=== PATIENT | male | born 1950 | race Two or more races ===

== ENCOUNTER 2019-03-22 12:56 | Inpatient (IN) | payer MEDICARE, OTHER ==
[~2019-03-22] VITALS: Ht 160 cm; Wt 80.7 kg
--- NOTE | 2019-03-22 13:00 | NUR ---
[id number], FROM SNF, C/O NAUSEA VOMITING SINCE THIS MORNING. PATIENT A/OX3, ABLE TO MOUTH NEEDS, ATTACHED TO THE SWITCH COUPLER. NEEDS ATTENDED.
[2019-03-22] MEDS ORDERED: ONDANSETRON HCL/PF 4 MG/2 ML VIAL ONE (14:28)
[2019-03-22] MEDS ORDERED: IPRA12.9 HHN (14:30)
[2019-03-22] MEDS ORDERED: ALBU2.5V38 IH (14:30)
[2019-03-22] MEDS ORDERED: ONDANSETRON HCL/PF 4 MG/2 ML VIAL IV ONE (14:30)
[2019-03-22] MEDS ORDERED: IV NS 0.9% 1,000 ML BAG IV ONE (14:30)
[2019-03-22 14:32] LABS: BASOPHILS # (AUTO) 0.1 /CMM (0.0-0.2); BASOPHILS % (AUTO) 0.5 % (0.0-2.0); EOSINOPHILS % (AUTO) 2.6 % (0.0-6.0); HEMATOCRIT 28 % (39-51); LYMPHOCYTES # (AUTO) 2.2 /CMM (0.8-4.8); LYMPHOCYTES % (AUTO) 11.1 % (20.0-44.0); MEAN CORPUSCULAR HGB CONC 33 g/dl (31.0-36.0); MEAN CORPUSCULAR VOLUME 75 fL (80-96); MONOCYTES # (AUTO) 1.1 /CMM (0.1-1.30); MONOCYTES % (AUTO) 5.6 % (2.0-12.0); NEUTROPHILS # (AUTO) 15.8 /CMM (1.8-8.9); NEUTROPHILS % (AUTO) 80.2 % (43.0-81.0); PLATELET COUNT (AUTO) 557 /CMM (150-450); RED BLOOD CELL COUNT(AUTO) 3.66 MIL/uL (4.5-6.0); WHITE BLOOD COUNT (AUTO) 19.7 K/uL (4.3-11.0)
[2019-03-22] MEDS ORDERED: CALC500O GT (14:32)
[2019-03-22] MEDS ORDERED: ASPI-1169 GT (14:32)
[2019-03-22] MEDS ORDERED: ATOR20TA GT (14:32)
[2019-03-22] MEDS ORDERED: CALC1TAB90 GT (14:33)
[2019-03-22] MEDS ORDERED: CHLO118L4 PO (14:36)
[2019-03-22] MEDS ORDERED: DOCU-141 GT (14:37)
[2019-03-22] MEDS ORDERED: BISA-79 RC (14:39)
[2019-03-22] MEDS ORDERED: CARV3.12 GT (14:39)
[2019-03-22] MEDS ORDERED: FERR220S2 GT (14:41)
[2019-03-22] MEDS ORDERED: NA P133E RC (14:41)
[2019-03-22] MEDS ORDERED: GLUC1KIT IM (14:42)
[2019-03-22] MEDS ORDERED: TAMS-12 GT (14:42)
[2019-03-22] MEDS ORDERED: HYDR-4075 PO (14:43)
[2019-03-22 14:45] LABS: ALBUMIN 3.3 g/dL (3.4-5.0); BILIRUBIN,DIRECT 0.1 mg/dL (0.0-0.2); BILIRUBIN,TOTAL 0.3 mg/dL (0.2-1.0); CALCIUM, SERUM 10.2 mg/dL (8.5-10.1); CREATININE 2.2 mg/dL (0.6-1.3); POTASSIUM 4.1 mmol/L (3.5-5.1); TOTAL PROTEIN, SERUM 10.4 g/dL (6.4-8.2)
[2019-03-22] MEDS ORDERED: HYDR-4076 GT (14:45)
[2019-03-22] MEDS ORDERED: MAGN400O6 GT (14:49)
[2019-03-22] MEDS ORDERED: INSU100I19 SQ (14:49)
[2019-03-22] MEDS ORDERED: NUTR1PAC14 GT (14:49)
[2019-03-22] MEDS ORDERED: FURO-144 GT (14:49)
[2019-03-22] MEDS ORDERED: INSU3INS8 SQ (14:53)
[2019-03-22] MEDS ORDERED: MULT1TAB73 GT (14:53)
[2019-03-22] MEDS ORDERED: AMLO10TA4 GT (14:53)
[2019-03-22] MEDS ORDERED: OMEP20CA11 GT (14:55)
[2019-03-22] MEDS ORDERED: TYL2T GT (14:58)
[2019-03-22] MEDS ORDERED: ACET-2605 GT (14:58)
[2019-03-22] MEDS ORDERED: ONDA4TAB5 GT (14:59)
[2019-03-22] MEDS ORDERED: ASCO-310 GT (14:59)
[2019-03-22] MEDS ORDERED: LEVOFLOXACIN 750 MG /D5W 150ML PIGGYBACK IV ONE (15:00)
[2019-03-22] MEDS ORDERED: NUT.237L30 GT (15:03)
[2019-03-22] MEDS ORDERED: POTA20TA83 GT (15:06)
[2019-03-22 15:46] LABS: BILIRUBIN,URINE Negative (NEGATIVE); BLOOD, URINE Moderate Ery/uL (NEGATIVE); COLOR,URINE Yellow (YELLOW); KETONES,URINE Negative (NEGATIVE); LEUKOCYTE ESTERASE ,URINE Large (NEGATIVE); NITRITE, URINE Negative (NEGATIVE); PROTEIN,URINE 30 mg/dl (NEGATIVE); UGLUCOSE Negative (NEGATIVE); UROBILINOGEN,URINE 0.2 EU/dL (0.2)
--- NOTE | 2019-03-22 15:58 | NUR ---
CALLED [facility]. FLORAL ASSISTANT WAS PAGED
--- NOTE | 2019-03-22 16:08 | NUR ---
CALLED [facility] FOR TELE BED
[2019-03-22 16:47] LABS: APPEARANCE,URINE TURBID (CLEAR); BACTERIA,URINE Moderate /HPF (None Seen); SQUAMOUS EPITHELIAL CELL,UR Few /HPF (None Seen); WBC,URINE TOO NUMEROUS TO COUN /HPF (0-3)
[2019-03-22 16:48] LABS: URINE AMORPHOUS PHOSPHATES Few /HPF (None Seen)
--- NOTE | 2019-03-22 17:51 | NUR ---
REPORT GIVEN TO DACIA RAE FOR ANGIE.
--- NOTE | 2019-03-22 18:10 | NUR ---
RN Notes Received patient in bed, awake, alert, oriented x3, able to mouth words and make needs known. HOB elevated, trach on humidified O2 at 6LPM and tolerated well. GT in place and clamped. Skin checked done noted with sacral redness. IV access on left AC patent and intact. Plan of care discussed with the patient with azeri speaking FELLED SEAM OPERATOR CHAINSTITCH and verbalized understanding. Safety measures and fall precaution in place with call light within reach. Will continue to monitor patient. Addendum: 03/23/19 at 0514 by CASSANDRA STILES RN wrong time of entry
--- NOTE | 2019-03-22 18:24 | NUR ---
RN NOTES Patient received on 6L venturi, patient on trach. Vital signs stable and patient shows no s/s of pain at this time. No sob noted, and patient lying down comfortable on his bed. Bed at the lowest setting, call light within reach, side rails up x2.
--- NOTE | 2019-03-22 18:33 | NUR ---
PATIENT TRANSFERRED TO [facility] 311-2 VIA ACLS PROTOCOL.
--- NOTE | 2019-03-22 18:54 | NUR ---
HYGIENE TEACHER CLOSING NOTES patient remains on 6L venturi device, no sob noted, vital signs stable. Suction device is set up and was able to suction patient. Made RT aware that the tubing is dirty. Patient able to use the call light to call for needs. Bed at the lowest setting, call light within reach, side rails up x2. Will give report to NOC RN for ANGIE bedside.
--- NOTE | 2019-03-22 19:10 | NUR ---
RN Notes Received patient in bed, awake, alert, oriented x3, able to mouth words and make needs known. HOB elevated, trach on humidified O2 at 6LPM and tolerated well. GT in place and clamped. Skin checked done noted with sacral redness. IV access on left AC patent and intact. Plan of care discussed with the patient with tajik speaking KEYBOARD ACTION ASSEMBLER and verbalized understanding. Safety measures and fall precaution in place with call light within reach. Will continue to monitor patient.
[2019-03-22 19:30] VITALS: BP 143/72
[2019-03-22] MEDS ORDERED: hydrALAZINE HCL 10 MG TABLET PO PRN (19:30)
[2019-03-22] MEDS ORDERED: DEXTROSE 50%-WATER 50 ML DISP.SYRIN IV PRN (19:30)
[2019-03-22] MEDS ORDERED: MAG HYDROX/AL HYDROX/SIMETH 30 ML UDC PO PRN (19:30)
[2019-03-22] MEDS ORDERED: *INSULIN REGULAR(HUMULIN R)HUM 100 UNIT/ML VIAL SQ PRN (19:30)
[2019-03-22] MEDS ORDERED: NA PHOS,M-B/NA PHOS,DI-BA 1 EA ENEMA RC PRN (19:30)
[2019-03-22] MEDS ORDERED: HYDROCODONE/APAP 5/325MG 1 EACH TABLET PO PRN (19:30)
[2019-03-22] MEDS ORDERED: ONDANSETRON 4 MG TAB.RAPDIS GT PRN (19:30)
[2019-03-22] MEDS ORDERED: Z GUARD REMEDY 2 OZ OINT TP PRN (19:30)
[2019-03-22] MEDS ORDERED: MAGNESIUM HYDROXIDE 30 ML UDC GT SCH (19:30)
[2019-03-22] MEDS ORDERED: ALBUTEROL FS 2.5 MG/3 ML VIAL.NEB IH PRN (19:30)
[2019-03-22] MEDS ORDERED: ONDANSETRON HCL/PF 4 MG/2 ML VIAL IVP PRN (19:30)
[2019-03-22] MEDS ORDERED: MAGNESIUM HYDROXIDE 30 ML UDC PO PRN (19:30)
[2019-03-22] MEDS ORDERED: MISCELLANEOUS MED 1 EA EA GT PRN (19:30)
[2019-03-22] MEDS ORDERED: ZOSYN IVPB 3.375 G in IV D5W 50ml IV ONE (20:00)
--- NOTE | 2019-03-22 20:14 | NUR ---
RT PT REC'D ON T MASK 5L VIA O2 LINE THEN PLACED ON COOL AEROSOL 5L 28%. PT STABLE AND ABLE TO COMMUNICATE. NO SOB NOTED AT THIS TIME. TRACH TUBE PATENT AND SECURE. PT SX. WILL CONTINUE TO MONITOR. Addendum: 03/22/19 at 2016 by ZO MILLIGAN RT Amended: Links added.
[2019-03-22] MEDS: IV NS 0.9% 1,000 ML IV PRN (21:43)
[2019-03-22 22:00] VITALS: BP 143/72
[2019-03-22] MEDS: INSULIN GLARGINE, 100 UNIT/ML CARTRIDGE SQ SCH (22:00)
[2019-03-22] MEDS: DOCUSATE SODIUM 100 MG CAPSULE PO SCH (22:52)
[2019-03-22] MEDS: BISACODYL (5 MG) 5 MG TABLET.DR GT SCH (22:52)
[2019-03-22] MEDS: BLOOD SUGAR DIAGNOSTIC 1 EACH STRIP VI SCH (22:52)
[2019-03-22] MEDS: CHLORHEXIDINE GLUCONATE 15 ML UDC MM SCH (22:52)
[2019-03-22] MEDS: TAMSULOSIN 0.4 MG CAP.SR.24H GT SCH (22:52)
[2019-03-23] VITALS (15 sets, daily range): BP systolic 112–138; BP diastolic 58–74
[2019-03-23 06:10] LABS: BASOPHILS % (AUTO) 0.1 % (0.0-2.0); EOSINOPHILS % (AUTO) 0.1 % (0.0-6.0); HEMATOCRIT 25 % (39-51); HEMOGLOBIN 8.2 g/dL (13.5-17.5); LYMPHOCYTES # (AUTO) 2.1 /CMM (0.8-4.8); LYMPHOCYTES % (AUTO) 7.5 % (20.0-44.0); MEAN CORPUSCULAR HGB CONC 33 g/dl (31.0-36.0); MEAN CORPUSCULAR VOLUME 75 fL (80-96); MONOCYTES # (AUTO) 1.6 /CMM (0.1-1.30); MONOCYTES % (AUTO) 5.8 % (2.0-12.0); NEUTROPHILS # (AUTO) 23.8 /CMM (1.8-8.9); NEUTROPHILS % (AUTO) 86.5 % (43.0-81.0); PLATELET COUNT (AUTO) 512 /CMM (150-450); RED BLOOD CELL COUNT(AUTO) 3.31 MIL/uL (4.5-6.0); WHITE BLOOD COUNT (AUTO) 27.6 K/uL (4.3-11.0)
[2019-03-23] MEDS: BLOOD SUGAR DIAGNOSTIC 1 EACH STRIP VI SCH ×4 (06:31→21:16)
[2019-03-23] MEDS: INSULIN REGULAR, HUMAN 100 UNIT/ML 3 ML VIAL SQ PRN (06:38)
--- NOTE | 2019-03-23 06:38 | NUR ---
RN Notes Patient refused to take the insulin for blood sugar 132 mg/dl, no diet order at this time because patient is nauseous and vomited last night.
[2019-03-23 06:42] LABS: CREATININE 1.9 mg/dL (0.6-1.3); MAGNESIUM 2.5 mg/dL (1.8-2.4); PHOSPHORUS 5.3 mg/dL (2.5-4.9); POTASSIUM 3.9 mmol/L (3.5-5.1)
--- NOTE | 2019-03-23 07:14 | NUR ---
RN Notes Patient slept on and off overnight, cough at times, productive, with thick sputum. Patient vomited 1x, light brown in color with sputum relived with zofran IV. Denies abdominal pain. Suction secretions PRN. Kept clean and dry. Turned and repositioned per protocol. Endorsed to morning RN for continuity of care.
--- NOTE | 2019-03-23 07:27 | NUR ---
MS RN OPENING NOTE RECEIVED REPORT FROM NOC SHIFT NURSE, PT AWAKE IN BED, ALERT AND ORIENTED X 3, NON VERBAL BUT ABLE TO MOUTH WORDS. TOLERATING VENT SETTINGS WELL. IV SITE ON LEFT AC G20 INTACT, PATENT, INFUSING NS AT 75ML/HR, NO SIGNS OF INFILTRATION NOTED. BED IN LOW POSITION, LOCKED, CALL LIGHT WITHIN REACH.
[2019-03-23] MEDS: PIPERACILLIN /TAZOBACTAM 3.375 G in IV D5W 100 ML IV SCH ×2 (08:16→21:13)
[2019-03-23] MEDS: CALCIUM CARB 600MG /VIT D 1 EACH TABLET GT SCH ×2 (09:00→09:20)
[2019-03-23] MEDS: ATORVASTATIN 10 MG TABLET GT SCH ×2 (09:00→09:19)
[2019-03-23] MEDS: PANTOPRAZOLE 40 MG/PACK PACK GT SCH ×2 (09:00→09:21)
[2019-03-23] MEDS: FERROUS SULFATE UDC 300 MG/5 ML UDC GT SCH ×3 (09:00→16:09)
[2019-03-23] MEDS: hydrALAZINE HCL 25 MG TABLET GT SCH ×4 (09:00→16:09)
[2019-03-23] MEDS: MULTIVIT W/MINERALS 1 TAB TABLET GT SCH ×2 (09:00→09:20)
[2019-03-23] MEDS: AMLODIPINE BESYLATE 10 MG TABLET GT SCH ×2 (09:00→09:21)
[2019-03-23] MEDS: INSULIN GLARGINE, 100 UNIT/ML CARTRIDGE SQ SCH ×2 (09:00→21:00)
[2019-03-23] MEDS: CARVEDILOL 3.125 MG TABLET GT SCH ×3 (09:00→16:09)
[2019-03-23] MEDS: POTASSIUM CHLORIDE 20 MEQ TAB.PRT.SR PO SCH ×2 (09:00→09:19)
[2019-03-23] MEDS: BISACODYL (5 MG) 5 MG TABLET.DR GT SCH ×2 (09:00→09:21)
[2019-03-23] MEDS: ASPIRIN 81 MG TAB.CHEW GT SCH ×2 (09:00→09:20)
[2019-03-23] MEDS: CHLORHEXIDINE GLUCONATE 15 ML UDC MM SCH ×2 (09:19→21:15)
--- NOTE | 2019-03-23 09:20 | NUR ---
ASPIRATED 120ML OF COFFEE GROUND EMESIS FROM GTUBE. CHARGE NURSE NOTIFIED. HELD AM MEDICATIONS.
[2019-03-23] MEDS: ALBUTEROL FS 2.5 MG/3 ML VIAL.NEB IH SCH ×3 (10:00→19:30)
--- NOTE | 2019-03-23 11:57 | NUR ---
TRANSFERRED PT TO ICU IN STABLE CONDITION
--- NOTE | 2019-03-23 12:10 | NUR ---
RN INITIAL NOTES RECEIVED PT AWAKE, A/OX3, MOUTH WORDS. TRACH IN PLACE. ON T-PIECE AT 28%. COFFEE GROUND SECRETIONS AND EMESIS NOTED. IV LINE IN PLACE. IVF INFUSING. GT IN PLACE, CONNECTED TO LOW INTERMITTENT SUCTION. GRAY CATH INSERTED. SKIN ASSESSMENT DONE. SKIN INTACT. KEPT HOB ELEVATED. VITAL SIGNS STABLE. BLE ELEVATED. ORIENTED TO ROOM AND USE OF CALL LIGHT. WILL CLOSELY MONITOR
[2019-03-23] MEDS: IV NS 0.9% 1,000 ML IV PRN ×2 (12:39→17:50)
[2019-03-23] MEDS: PANTOPRAZOLE 40 MG VIAL IV SCH ×2 (15:32→17:24)
--- NOTE | 2019-03-23 18:26 | NUR ---
RN CLOSING NOTES NO SIGNIFICANT CHANGE NOTED. NO MORE COFFEE GROUND EMESIS NOTED. GT STILL CONNECTED TO LOW INTERMITTENT SUCTION, 550ML OUTPUT NOTED. NO CHANGE IN LOC NOTED. KEPT HOB ELEVATED. TRACH IN PLACE, T-PIECE AT 40%. NO RESPIRATORY DISTRESS NOTED. DENIES ANY PAIN. FC IN PLACE. ADEQUATE OUTPUT NOTED. KEPT CLEAN AND DRY. ASSISTED IN REPOSITIONING. KEPT COMFORTABLE. WILL ENDORSE FOR CONTINUITY OF CARE.
[2019-03-23] MEDS: TAMSULOSIN 0.4 MG CAP.SR.24H GT SCH (21:12)
[2019-03-23] MEDS: MUPIROCIN OINT 2% 22 GM TUBE SCH (21:12)
[2019-03-23] MEDS: DOCUSATE SODIUM 100 MG CAPSULE PO SCH (21:16)
--- NOTE | 2019-03-23 21:18 | NUR ---
RN NOTES RECEIVED PATIENT AWAKE IN BED WATCHING TV. IN NO APPARENT DISTRESS, BREATHING EVEN AND UNLABORED. NO COMPLAINT OF PAIN OR DISCOMFORT. GRAY CATHETER IN PLACE AND INTACT, DRAINING CLEAR YELLOW WITH NO FOUL ODOR URINE. ALERT AND ORIENTED, ABLE TO MOUTHWORDS NEEDS. SUGAR CHECKED 107MG/DL. LANTUS HELD, PATIENT IS NPO. KEPT CLEAN AND DRY. WILL CONTINUE TO MONITOR.
[2019-03-24] VITALS (30 sets, daily range): BP systolic 105–142; BP diastolic 55–76
[2019-03-24] MEDS: ALBUTEROL FS 2.5 MG/3 ML VIAL.NEB IH SCH ×4 (01:13→19:56)
[2019-03-24] MEDS: IV NS 0.9% 1,000 ML IV PRN (06:02)
--- NOTE | 2019-03-24 06:14 | NUR ---
RN NOTES NO SIGNIFICANT CHANGE OVERNIGHT. NO DISTRESS, NO COMPLAINT OF PAIN OR DISCOMFORT. BREATHING EVEN AND UNLABORED. WILL ENDORSE TO NEXT SHIFT FOR CONTINUITY OF CARE
[2019-03-24 07:03] LABS: BASOPHILS # (AUTO) 0.1 /CMM (0.0-0.2); BASOPHILS % (AUTO) 0.7 % (0.0-2.0); EOSINOPHILS % (AUTO) 2.3 % (0.0-6.0); HEMATOCRIT 22 % (39-51); HEMOGLOBIN 7.5 g/dL (13.5-17.5); LYMPHOCYTES # (AUTO) 2.4 /CMM (0.8-4.8); LYMPHOCYTES % (AUTO) 17.2 % (20.0-44.0); MEAN CORPUSCULAR HGB CONC 34 g/dl (31.0-36.0); MEAN CORPUSCULAR VOLUME 76 fL (80-96); MONOCYTES # (AUTO) 1.2 /CMM (0.1-1.30); MONOCYTES % (AUTO) 8.8 % (2.0-12.0); NEUTROPHILS # (AUTO) 9.8 /CMM (1.8-8.9); PLATELET COUNT (AUTO) 486 /CMM (150-450); RED BLOOD CELL COUNT(AUTO) 2.97 MIL/uL (4.5-6.0); WHITE BLOOD COUNT (AUTO) 13.8 K/uL (4.3-11.0)
[2019-03-24 07:24] LABS: CALCIUM, SERUM 9.2 mg/dL (8.5-10.1); MAGNESIUM 2.5 mg/dL (1.8-2.4); PHOSPHORUS 3.8 mg/dL (2.5-4.9); POTASSIUM 3.4 mmol/L (3.5-5.1)
--- NOTE | 2019-03-24 07:44 | NUR ---
WOUND CARE CONSULT: PT PRESENTS WITH SACRAL SCARRING AND DRY ABRASION TO LEFT LATERAL LOWER LEG, PRESENT ON ADMISSION. RECOMMENDATIONS MADE FOR SKIN PROTECTION. DISCUSSED WITH NURSING STAFF. PT ON REAGAN ISOFLEX LOW AIRLOSS BED. PT ABLE TO ASSIST WITH TURNING AND REPOSITIONING IN BED. WILL SEE PRN. FISCHER IN AGREEMENT WITH PLAN OF CARE. Addendum: 03/24/19 at 0745 by DAMION WADE WNDNU Amended: Links added.
--- NOTE | 2019-03-24 08:00 | NUR ---
CAFE MANAGER: pt.is A/Ox3, rest, no pain now, O2 40% 10L via T_piece, O2sat over 96%, no SOB, SR, SBP over 100, GT to LIS greenish color secretion, no N/V with blood, no melena by report, H/H 7.11/16, w/c nurse evaluated pt/see new orders, is in room, updated with all above, see new orders
[2019-03-24] MEDS: BLOOD SUGAR DIAGNOSTIC 1 EACH STRIP VI SCH ×3 (08:15→17:13)
[2019-03-24] MEDS: IV D5/0.45 NACL 1,000 ML IV PRN ×2 (08:56→20:00)
[2019-03-24] MEDS: INSULIN GLARGINE, 100 UNIT/ML CARTRIDGE SQ SCH ×2 (09:00→21:00)
[2019-03-24] MEDS: POTASSIUM CL. PREMIX PERIPHER. 50 ML IV SCH ×4 (09:02→12:58)
[2019-03-24] MEDS: CHLORHEXIDINE GLUCONATE 15 ML UDC MM SCH ×2 (09:03→20:04)
[2019-03-24] MEDS: AMLODIPINE BESYLATE 10 MG TABLET GT SCH (09:04)
[2019-03-24] MEDS: CARVEDILOL 3.125 MG TABLET GT SCH ×2 (09:04→17:00)
[2019-03-24] MEDS: hydrALAZINE HCL 25 MG TABLET GT SCH ×3 (09:04→16:59)
[2019-03-24] MEDS: FERROUS SULFATE UDC 300 MG/5 ML UDC GT SCH ×2 (09:04→16:59)
[2019-03-24] MEDS: BISACODYL (5 MG) 5 MG TABLET.DR GT SCH (09:04)
[2019-03-24] MEDS: PANTOPRAZOLE 40 MG VIAL IV SCH ×2 (09:05→16:59)
[2019-03-24] MEDS: MULTIVIT W/MINERALS 1 TAB TABLET GT SCH (09:05)
[2019-03-24] MEDS: ATORVASTATIN 10 MG TABLET GT SCH (09:05)
[2019-03-24] MEDS: POTASSIUM CHLORIDE 20 MEQ TAB.PRT.SR PO SCH (09:05)
[2019-03-24] MEDS: CALCIUM CARB 600MG /VIT D 1 EACH TABLET GT SCH (09:05)
[2019-03-24] MEDS: MUPIROCIN OINT 2% 22 GM TUBE SCH ×2 (09:07→20:04)
--- NOTE | 2019-03-24 09:20 | NUR ---
SULFUR CHLORIDE OPERATOR: is in room, updated with pt.history, VS, GT to LIS, no N/V/stool with blood by report last night, labs, meds, said: continue Protonix, call him with any GI bleed evidence
--- NOTE | 2019-03-24 09:20 | NUR ---
POWER TONG OPERATOR: called pharmacy to get Zosyn PB 0800 dose
[2019-03-24] MEDS: PIPERACILLIN /TAZOBACTAM 3.375 G in IV D5W 100 ML IV SCH ×2 (10:44→20:00)
--- NOTE | 2019-03-24 11:30 | NUR ---
PRODUCT DEVELOPMENT INTERN: is in room, updated with pt.current status, VS, suction amount, O2sat., I/O, NPO, labs, GT LIS amount, meds, see new orders
--- NOTE | 2019-03-24 16:00 | NUR ---
YOUTH MINISTRY DIRECTOR: pt.is A/Ox3, no any pain now, no c/o, SR, SBP over 100, O2sat.WNL, no SOB, light brown drain from GT by LIS, pm/skin.wounds care done, pt family updated
[2019-03-24] MEDS: INSULIN REGULAR, HUMAN 100 UNIT/ML 3 ML VIAL SQ PRN ×2 (17:13→23:48)
--- NOTE | 2019-03-24 17:30 | NUR ---
OUTSIDE PLANT FIELD ENGINEER: got 100ml bloody drain from GT by LIS, sent message for , will recheck H/H
[2019-03-24 18:38] LABS: HEMOGLOBIN 7.9 g/dL (13.5-17.5)
--- NOTE | 2019-03-24 19:30 | NUR ---
RN PT RECEIVED FROM AM SHIFT AWAKE, A/OX3, MOUTH WORDS. TRACH IN PLACE. ON T-PIECE. COFFEE GROUND SECRETIONS FROM GT CONNECTED TO LOW INTERMITTENT SUCTION. IV LINE IN PLACE. IVF INFUSING ORDERED. GRAY CATH IN PLACE. SKIN ASSESSMENT DONE. KEPT HOB ELEVATED. VITAL SIGNS STABLE. WILL CONTINUE TO MONITOR.
[2019-03-24] MEDS ORDERED: DEXTROSE 50%-WATER 50 ML DISP.SYRIN IV PRN (20:00)
--- NOTE | 2019-03-24 21:14 | NUR ---
RN BS 137, HUNTER PM NON ADMINISTERED, PT NPO, CHARGE NURSE ED MADE AWARE.
[2019-03-24] MEDS: DOCUSATE SODIUM 100 MG CAPSULE PO SCH (21:30)
[2019-03-24] MEDS: TAMSULOSIN 0.4 MG CAP.SR.24H GT SCH (21:30)
[2019-03-24] MEDS: BLOOD SUGAR DIAGNOSTIC 1 EACH STRIP IN SCH (23:42)
--- NOTE | 2019-03-24 23:48 | NUR ---
RN BS 138, 2 UNITS REGULAR INSULIN ADMIN ORDERED
[2019-03-25] VITALS (29 sets, daily range): BP systolic 95–141; BP diastolic 58–82
[2019-03-25] MEDS: ALBUTEROL FS 2.5 MG/3 ML VIAL.NEB IH SCH ×4 (00:57→19:44)
[2019-03-25] MEDS: BLOOD SUGAR DIAGNOSTIC 1 EACH STRIP IN SCH ×3 (05:07→17:52)
[2019-03-25] MEDS: INSULIN REGULAR, HUMAN 100 UNIT/ML 3 ML VIAL SQ PRN ×2 (05:08→12:15)
[2019-03-25 05:19] LABS: BASOPHILS # (AUTO) 0.1 /CMM (0.0-0.2); BASOPHILS % (AUTO) 0.8 % (0.0-2.0); HEMATOCRIT 23 % (39-51); HEMOGLOBIN 7.5 g/dL (13.5-17.5); LYMPHOCYTES # (AUTO) 2.6 /CMM (0.8-4.8); MEAN CORPUSCULAR HGB CONC 33 g/dl (31.0-36.0); MEAN CORPUSCULAR VOLUME 77 fL (80-96); MONOCYTES # (AUTO) 1.4 /CMM (0.1-1.30); MONOCYTES % (AUTO) 9.5 % (2.0-12.0); NEUTROPHILS # (AUTO) 9.9 /CMM (1.8-8.9); NEUTROPHILS % (AUTO) 67.7 % (43.0-81.0); PLATELET COUNT (AUTO) 546 /CMM (150-450); RED BLOOD CELL COUNT(AUTO) 2.98 MIL/uL (4.5-6.0); WHITE BLOOD COUNT (AUTO) 14.6 K/uL (4.3-11.0)
[2019-03-25 05:47] LABS: CALCIUM, SERUM 8.6 mg/dL (8.5-10.1); CREATININE 1.6 mg/dL (0.6-1.3); POTASSIUM 3.5 mmol/L (3.5-5.1)
--- NOTE | 2019-03-25 08:00 | NUR ---
CLINICAL NURSE: pt.is A/Ox3, rest, no c/o, no pain now, O2sat.over 94% on T-piece 10L/40%, RT is in room for resp.Tx, SR, SBP over 100, green brown secretion 90ml/12hr from GT/LIS over night by report, no melena, H/H 7.5/, NPO, ISS was changed for q6h accuV, hold Lantus, is in room/updated with all above, said: pt.is ready to transfer if Ok with GI MD, see new orders
[2019-03-25] MEDS: PIPERACILLIN /TAZOBACTAM 3.375 G in IV D5W 100 ML IV SCH ×2 (08:08→16:33)
[2019-03-25] MEDS: PANTOPRAZOLE 40 MG VIAL IV SCH ×2 (08:39→16:34)
[2019-03-25] MEDS: CHLORHEXIDINE GLUCONATE 15 ML UDC MM SCH ×2 (08:44→21:36)
[2019-03-25] MEDS: CALCIUM CARB 600MG /VIT D 1 EACH TABLET GT SCH (08:44)
[2019-03-25] MEDS: hydrALAZINE HCL 25 MG TABLET GT SCH ×3 (08:44→16:33)
[2019-03-25] MEDS: FERROUS SULFATE UDC 300 MG/5 ML UDC GT SCH ×2 (08:44→16:33)
[2019-03-25] MEDS: ATORVASTATIN 10 MG TABLET GT SCH (08:44)
[2019-03-25] MEDS: BISACODYL (5 MG) 5 MG TABLET.DR GT SCH (08:45)
[2019-03-25] MEDS: MULTIVIT W/MINERALS 1 TAB TABLET GT SCH (08:45)
[2019-03-25] MEDS: CARVEDILOL 3.125 MG TABLET GT SCH ×2 (08:45→16:33)
[2019-03-25] MEDS: AMLODIPINE BESYLATE 10 MG TABLET GT SCH (08:45)
[2019-03-25] MEDS: POTASSIUM CHLORIDE 20 MEQ TAB.PRT.SR PO SCH (08:45)
[2019-03-25] MEDS: MUPIROCIN OINT 2% 22 GM TUBE SCH ×2 (08:46→21:37)
[2019-03-25] MEDS: INSULIN GLARGINE, 100 UNIT/ML CARTRIDGE SQ SCH ×2 (09:00→22:06)
[2019-03-25] MEDS: IV D5/0.45 NACL 1,000 ML IV PRN (10:20)
--- NOTE | 2019-03-25 11:00 | NUR ---
CORN CUTTER OPERATOR: GT to LIS: no blood, VSS, pt.is suctioned well, pt.family at BS, , were in room/updated
[2019-03-25] MEDS: IV D5W 1,000 ML IV PRN ×2 (12:06→22:48)
--- NOTE | 2019-03-25 15:30 | NUR ---
NARRATIVE WRITER: is in room, updated with all above, said: stop GT LIS, ok to start GTF per IM MD and DT, call him if pt has melena
--- NOTE | 2019-03-25 18:30 | NUR ---
CAN TECHNICIAN: ordered: start GTF Glucerna 20ml/h, ok to transfer to tele
[2019-03-25] MEDS ORDERED: GLUCERNA 1.2 1,000 ML BOTTLE NG PRN (20:00)
--- NOTE | 2019-03-25 21:25 | NUR ---
GASOLINE PLANT OPERATOR: DR. MURRIETA CALLED BACK AND RELAYED URINE CULTURE RESULT FOR POSITIVE CRE. WT ORDER FOR AMIKACIN PER PHARMACY TO DOSE. PT IS IN STABLE CONDITION WT TELE STATUS, AWAITING FOR BED. WILL CONTINUE TO MONITOR.
[2019-03-25] MEDS ORDERED: DOSING PER PHARMACY-AMIKACI IV XX PRN (21:30)
[2019-03-25] MEDS: DOCUSATE SODIUM 100 MG CAPSULE PO SCH (21:36)
[2019-03-25] MEDS: TAMSULOSIN 0.4 MG CAP.SR.24H GT SCH (21:36)
--- NOTE | 2019-03-25 22:15 | NUR ---
BATTERY ASSEMBLER: REPORT GIVEN TO BUTCH NOBLES FOR TELE STATUS.
--- NOTE | 2019-03-25 22:25 | NUR ---
REVIEW TRAINER: PT TRANSPORTED TO TELE FLOOR ROOM 110 IN STABLE CONDITION. REMAINED ALERT AND AWAKE, ABLE TO MAKE NEEDS KNOWN. STARTED ON GTF. NO ACTIVE BLEEDING. NO ACUTE DISTRESS ON T-PIECE AT 40% FI02. NO C/O PAIN. ALL NEEDS MET.
--- NOTE | 2019-03-25 22:30 | NUR ---
ATTORNEY GENERAL NOTES RECEIVED PATIENT TRANSFER FROM ICU TO ROOM 110. REPORT RECEIVED FROM ANTONIETA RAE. PATIENT A/A/O X2-3, ABLE TO MAKE NEEDS KNOWN & STATE PAIN BY MOUTHING WORDS. BREATHING EVEN & UNLABORED W/ TRACH INTACT & TOLERATING COOL AEROSOL W/ FIO2 @ 40%. NO S/S OF RESPIRATORY DISTRESS. ON TELE W/ SINUS RHYTHM. RIGHT HAND IV & LEFT FOREARM IV #20 INTACT & PATENT W/ DRESSING CDI & IVF D5W INFUSING WELL @ 80 ML/HR. G-TUBE PATENT & FLUSHING WELL, GTF GLUCERNA RUNNING @ 20 ML/HR. NO RESIDUAL NOTED @ THIS TIME. GRAY CATH DRAINING CLEAR, YELLOW URINE. DENIES ANY PAIN OR DISCOMFORT @ THIS TIME. SAFETY MEASURES IN PLACE W/ SIDE RAILS UP & BED ALARM ON. CALL LIGHT PLACED WITHIN REACH & INSTRUCTED TO CALL FOR ASSISTANCE. HOB ELEVATED FOR ASPIRATION PRECAUTIONS. WILL CONTINUE TO MONITOR.
[2019-03-25] MEDS ORDERED: AMIKACIN 1,000 MG in IV D5W 100 ML IV SCH (23:00)
[2019-03-25] MEDS ORDERED: AMIKACIN 250 MG/ML VIAL ONE (23:37)
[2019-03-26] VITALS: BP 129/67
[2019-03-26] MEDS: BLOOD SUGAR DIAGNOSTIC 1 EACH STRIP IN SCH ×4 (00:06→17:57)
[2019-03-26] MEDS: INSULIN REGULAR, HUMAN 100 UNIT/ML 3 ML VIAL SQ PRN ×4 (00:11→18:01)
[2019-03-26] MEDS: PIPERACILLIN /TAZOBACTAM 3.375 G in IV D5W 100 ML IV SCH ×3 (00:59→17:05)
[2019-03-26] MEDS: ALBUTEROL FS 2.5 MG/3 ML VIAL.NEB IH SCH ×4 (01:03→19:58)
[2019-03-26 04:00] VITALS: BP 127/72
[2019-03-26] MEDS ORDERED: FEE PK DOSING 1 MIN EA MC ONE (06:30)
[2019-03-26 07:06] LABS: CALCIUM, SERUM 8.4 mg/dL (8.5-10.1); CREATININE 1.4 mg/dL (0.6-1.3); POTASSIUM 3.2 mmol/L (3.5-5.1)
[2019-03-26 07:40] LABS: BASOPHILS # (AUTO) 0.1 /CMM (0.0-0.2); BASOPHILS % (AUTO) 0.8 % (0.0-2.0); EOSINOPHILS % (AUTO) 7.9 % (0.0-6.0); HEMATOCRIT 23 % (39-51); HEMOGLOBIN 7.8 g/dL (13.5-17.5); LYMPHOCYTES # (AUTO) 2.8 /CMM (0.8-4.8); LYMPHOCYTES % (AUTO) 23.2 % (20.0-44.0); MEAN CORPUSCULAR HGB CONC 34 g/dl (31.0-36.0); MEAN CORPUSCULAR VOLUME 76 fL (80-96); MONOCYTES # (AUTO) 1.1 /CMM (0.1-1.30); MONOCYTES % (AUTO) 8.9 % (2.0-12.0); NEUTROPHILS # (AUTO) 7.1 /CMM (1.8-8.9); NEUTROPHILS % (AUTO) 59.2 % (43.0-81.0); PLATELET COUNT (AUTO) 560 /CMM (150-450); RED BLOOD CELL COUNT(AUTO) 3.07 MIL/uL (4.5-6.0); WHITE BLOOD COUNT (AUTO) 12.1 K/uL (4.3-11.0)
[2019-03-26 08:00] VITALS: BP_SYST 108; BP_SYST 123; BP_DIAS 69; BP_DIAS 70
[2019-03-26] MEDS ORDERED: POTASSIUM CL. PREMIX PERIPHER. 50 ML IV SCH (08:00)
[2019-03-26] MEDS: FERROUS SULFATE UDC 300 MG/5 ML UDC GT SCH ×2 (09:29→17:07)
[2019-03-26] MEDS: CHLORHEXIDINE GLUCONATE 15 ML UDC MM SCH ×2 (09:29→21:38)
[2019-03-26] MEDS: CALCIUM CARB 600MG /VIT D 1 EACH TABLET GT SCH (09:30)
[2019-03-26] MEDS: PANTOPRAZOLE 40 MG VIAL IV SCH ×2 (09:31→17:06)
[2019-03-26] MEDS: POTASSIUM CHLORIDE 20 MEQ TAB.PRT.SR PO SCH (09:33)
[2019-03-26] MEDS: CARVEDILOL 3.125 MG TABLET GT SCH ×2 (09:33→17:06)
[2019-03-26] MEDS: MULTIVIT W/MINERALS 1 TAB TABLET GT SCH (09:34)
[2019-03-26] MEDS: ATORVASTATIN 10 MG TABLET GT SCH (09:34)
[2019-03-26] MEDS: AMLODIPINE BESYLATE 10 MG TABLET GT SCH (09:39)
[2019-03-26] MEDS: hydrALAZINE HCL 25 MG TABLET GT SCH ×3 (09:40→17:07)
[2019-03-26] MEDS: MUPIROCIN OINT 2% 22 GM TUBE SCH ×2 (09:44→21:40)
[2019-03-26] MEDS: BISACODYL (5 MG) 5 MG TABLET.DR GT SCH (09:47)
[2019-03-26] MEDS: IV D5W 1,000 ML IV PRN (09:52)
[2019-03-26] MEDS: INSULIN GLARGINE, 100 UNIT/ML CARTRIDGE SQ SCH ×2 (09:57→23:16)
[2019-03-26] MEDS: ACETAMINOPHEN 325 MG TABLET PO PRN ×2 (10:25→17:07)
[2019-03-26] MEDS: POTASSIUM CHLORIDE 20 MEQ POWDER PACKET GT SCH ×5 (10:28→17:06)
[2019-03-26] MEDS ORDERED: POTASSIUM CHLORIDE 20 MEQ POWDER PACKET GT SCH (10:30)
[2019-03-26 11:49] LABS: OCCULT BLOOD STOOL NEGATIVE (NEGATIVE)
[2019-03-26 12:00] VITALS: BP 106/60
[2019-03-26] MEDS ORDERED: GLUCERNA 1.2 1,000 ML BOTTLE NG PRN (14:30)
[2019-03-26 16:00] VITALS: BP 123/72
--- NOTE | 2019-03-26 19:00 | NUR ---
rn note pt refused to turn and repositioning, preferring to stay supine, pt kept clean and dry. pt also refused tube feeding to be run at goal rate of 60 ml/hr, pt okay with slower rate at 30 ml/r, risks and benefits explained, still refused.
--- NOTE | 2019-03-26 19:30 | NUR ---
FACTORY MACHINE COMPUTER OPERATOR OPENING NOTES, RECEIVED PATIENT IN BED A/O X3, NON-VERBAL BUT ABLE TO MAKE NEEDS KNOWN & STATE PAIN BY MOUTHING WORDS BREATHING EVEN & UNLABORED W/ TRACH INTACT. NO S/S OF RESPIRATORY DISTRESS. ON TELE W/ SINUS RHYTHM. RIGHT HAND IV & LEFT AC IV #20 INTACT & PATENT W/ DRESSING CDI & IVF D5W INFUSING WELL @ 80 ML/HR. G-TUBE PATENT & FLUSHING WELL, GTF GLUCERNA RUNNING @ 30 ML/HR. NO RESIDUAL NOTED @ THIS TIME. GRAY CATH DRAINING CLEAR, YELLOW URINE. DENIES ANY PAIN OR DISCOMFORT @ THIS TIME. SAFETY MEASURES IN PLACE & BED ALARM ON. CALL LIGHT PLACED WITHIN REACH. HOB ELEVATED FOR ASPIRATION PRECAUTIONS. WILL CONTINUE TO MONITOR.
[2019-03-26 20:00] VITALS: BP 108/69
[2019-03-26] MEDS: DOCUSATE SODIUM 100 MG CAPSULE PO SCH (22:28)
[2019-03-26] MEDS: TAMSULOSIN 0.4 MG CAP.SR.24H GT SCH (22:29)
[2019-03-27 00:05] VITALS: BP 124/34
[2019-03-27] MEDS: BLOOD SUGAR DIAGNOSTIC 1 EACH STRIP IN SCH ×3 (00:12→12:32)
[2019-03-27] MEDS: PIPERACILLIN /TAZOBACTAM 3.375 G in IV D5W 100 ML IV SCH ×2 (00:14→08:46)
[2019-03-27] MEDS: ALBUTEROL FS 2.5 MG/3 ML VIAL.NEB IH SCH ×3 (01:18→13:19)
[2019-03-27 04:00] VITALS: BP 119/64
[2019-03-27 06:16] LABS: CALCIUM, SERUM 8.4 mg/dL (8.5-10.1); CREATININE 1.4 mg/dL (0.6-1.3); POTASSIUM 3.5 mmol/L (3.5-5.1)
[2019-03-27 06:19] LABS: BASOPHILS # (AUTO) 0.1 /CMM (0.0-0.2); BASOPHILS % (AUTO) 0.7 % (0.0-2.0); EOSINOPHILS % (AUTO) 8.3 % (0.0-6.0); HEMATOCRIT 25 % (39-51); HEMOGLOBIN 8.1 g/dL (13.5-17.5); LYMPHOCYTES % (AUTO) 22.5 % (20.0-44.0); MEAN CORPUSCULAR HGB CONC 32 g/dl (31.0-36.0); MEAN CORPUSCULAR VOLUME 77 fL (80-96); MONOCYTES # (AUTO) 1.2 /CMM (0.1-1.30); NEUTROPHILS # (AUTO) 7.9 /CMM (1.8-8.9); NEUTROPHILS % (AUTO) 59.5 % (43.0-81.0); PLATELET COUNT (AUTO) 530 /CMM (150-450); RED BLOOD CELL COUNT(AUTO) 3.25 MIL/uL (4.5-6.0); WHITE BLOOD COUNT (AUTO) 13.3 K/uL (4.3-11.0)
--- NOTE | 2019-03-27 07:12 | NUR ---
COLOR CHECKER CLOSING NOTES, PATIENT IN BED A/O X3, NON-VERBAL BUT ABLE TO MAKE NEEDS KNOWN & STATE PAIN BY MOUTHING WORDS BREATHING EVEN & UNLABORED W/ TRACH INTACT. NO S/S OF RESPIRATORY DISTRESS. ON TELE W/ SINUS RHYTHM. RIGHT HAND IV & LEFT AC IV #20 INTACT & PATENT W/ DRESSING CDI & IVF D5W INFUSING WELL @ 80 ML/HR. G-TUBE PATENT & FLUSHING WELL, GTF GLUCERNA RUNNING @ 35 ML/HR. NO RESIDUAL NOTED @ THIS TIME. GRAY CATH DRAINING CLEAR, YELLOW URINE. DENIES ANY PAIN OR DISCOMFORT @ THIS TIME. SAFETY MEASURES IN PLACE & BED ALARM ON. CALL LIGHT PLACED WITHIN REACH. HOB ELEVATED FOR ASPIRATION PRECAUTIONS. WILL ENDORSE TO AM RN FOR ANGIE.
[2019-03-27 08:00] VITALS: BP 110/62
[2019-03-27] MEDS: IV D5W 1,000 ML IV PRN (08:39)
[2019-03-27] MEDS: CHLORHEXIDINE GLUCONATE 15 ML UDC MM SCH (08:46)
[2019-03-27] MEDS: CALCIUM CARB 600MG /VIT D 1 EACH TABLET GT SCH (08:46)
[2019-03-27] MEDS: FERROUS SULFATE UDC 300 MG/5 ML UDC GT SCH (08:46)
[2019-03-27] MEDS: AMLODIPINE BESYLATE 10 MG TABLET GT SCH (08:53)
[2019-03-27] MEDS: hydrALAZINE HCL 25 MG TABLET GT SCH (08:53)
[2019-03-27] MEDS: POTASSIUM CHLORIDE 20 MEQ TAB.PRT.SR PO SCH (08:54)
[2019-03-27] MEDS: ATORVASTATIN 10 MG TABLET GT SCH (08:54)
[2019-03-27] MEDS: MULTIVIT W/MINERALS 1 TAB TABLET GT SCH (08:54)
[2019-03-27] MEDS: CARVEDILOL 3.125 MG TABLET GT SCH (08:55)
[2019-03-27] MEDS: BISACODYL (5 MG) 5 MG TABLET.DR GT SCH (08:55)
[2019-03-27] MEDS: PANTOPRAZOLE 40 MG VIAL IV SCH (09:11)
[2019-03-27] MEDS: INSULIN GLARGINE, 100 UNIT/ML CARTRIDGE SQ SCH (09:14)
[2019-03-27] MEDS ORDERED: PIPE3.376 IV (10:38)
[2019-03-27] MEDS: INSULIN REGULAR, HUMAN 100 UNIT/ML 3 ML VIAL SQ PRN (11:46)
[2019-03-27 12:00] VITALS: BP 119/72
[2019-03-27] MEDS ORDERED: AMIKACIN 1,000 MG in IV D5W 100 ML IV SCH (12:00)
--- NOTE | 2019-03-27 14:52 | NUR ---
Patient refusal of transfer, insert molding operator, Electric Appliance Installer, Unit hand folder video game script writer, patient son, and ambulance attempt to convince patient for transport to [facility]. Pravin Sol RN
--- NOTE | 2019-03-27 14:56 | NUR ---
Call to MD Gutierrez to discuss patient refusal of discharge. Pravin Sol RN
[2019-03-27 16:00] VITALS: BP 121/69
--- NOTE | 2019-03-27 17:25 | NUR ---
Patient with blood glucose 56mg/dl. Given two orange juices prior to recheck of 56mg/dL. Given 1 ampule of of dextrose 50 %. Pravin Sol RN
--- NOTE | 2019-03-27 17:35 | NUR ---
Blood glucose increase to 206 mg/dl. Patient IV site saline locked with pino catheter in place. Report given to the ambulance crew members to transport patient back to [facility]. Patient accompanied by family member a daughter, present at patient bedside. Prior to that a sister was standing by to convince the patient of discharge safety. The patient says he does agree with the discharge plan after speaking with his field case manager and his family. Pravin Sol RN
== END 2019-03-27 18:00 | DRG 720 ==
LOC: ER 13:00 → TELE 18:28 → MED 03-23 02:10 → ICU 03-23 11:48 → TELE-TD 03-25 22:23 → TELE1 03-25 23:01
PROVIDERS: ADMIT Internal Medicine; ATTEND Internal Medicine
DX: A41.9 Sepsis, unspecified organism (principal); J96.21 Acute and chronic respiratory failure with hypoxia; N17.0 Acute kidney failure with tubular necrosis; E43 Unspecified severe protein-calorie malnutrition; G93.41 Metabolic encephalopathy; J15.6 Pneumonia due to other Gram-negative bacteria; K31.1 Adult hypertrophic pyloric stenosis; E87.0 Hyperosmolality and hypernatremia; E11.22 Type 2 diabetes mellitus with diabetic chronic kidney disease; Z93.0 Tracheostomy status; R13.10 Dysphagia, unspecified; Z86.73 Personal history of transient ischemic attack (TIA), and cerebral infarction without residual deficits; Z93.1 Gastrostomy status; K21.9 Gastro-esophageal reflux disease without esophagitis; N39.0 Urinary tract infection, site not specified; I12.9 Hypertensive chronic kidney disease with stage 1 through stage 4 chronic kidney disease, or unspecified chronic kidney disease; D47.3 Essential (hemorrhagic) thrombocythemia; D50.9 Iron deficiency anemia, unspecified; Z68.31 Body mass index [BMI] 31.0-31.9, adult; E86.0 Dehydration; N18.9 Chronic kidney disease, unspecified; E86.1 Hypovolemia; K92.2 Gastrointestinal hemorrhage, unspecified; E11.43 Type 2 diabetes mellitus with diabetic autonomic (poly)neuropathy; K31.84 Gastroparesis; Z22.39 Carrier of other specified bacterial diseases; R65.20 Severe sepsis without septic shock
CPT/HCPCS: 31720; 36415; 71045-TC; 80048-TC; 80076-TC; 80150; 81000-TC; 82272-TC; 82962-TC; 83540-TC; 83605-TC; 83690-TC; 83735-TC; 84100-TC; 85025-TC; 85027-TC; 85730-TC; 87040-TC; 87070-TC; 87081-TC; 87086-TC; 87186-TC; 94640-TC; 94760-TC; 94799-TC; A4623; A7526; C9113; G0378; J0278; J1815; J1956; J2405; J2543; J3480; J3490; J7030; J7050; J7060; J7070